=== PATIENT | female | born 1985 | race Two or more races ===

== ENCOUNTER 2016-05-11 10:14 | Emergency (ER) | payer OTHER, MEDICAID ==
[~2016-05-11] VITALS: Ht 160 cm; Wt 104.3 kg
[~2016-05-11 10:14] MED LIST: IBUPROFEN600 MG ORAL; IBUPROFEN600 MG PO; NKM; NORCO 5-325 TA1 EACH PO; ROBAXIN500 MG PO; VICODIN 5-3001 EACH ORAL
[2016-05-11] MEDS ORDERED: SOMA350 MG PO (10:25)
[2016-05-11] MEDS ORDERED: Ketorolac 60mg Inj IM ONE (10:45)
[2016-05-11] MEDS ORDERED: Oxycodone/Acetaminophen 5-325 ORAL ONE (10:45)
--- NOTE | 2016-05-11 10:45 | Emergency Room Report ---
History of Present Illness General Chief Complaint: Lower Back Pain or Injury Source: Patient Present Illness HPI The patient presents with low back pain. This started on Monday 4 days ago. She was bending over. Her back caught and she's been having spasms in the lower back. It radiates to her legs. Mainly anterior thighs. This is worse when she bends over. She also has muscle spasms. She's been taking soma with minimal help. She denies dysuria. Pain 10/10, constant and worsened with movement, aching occasional sharp with spasms. She injured her back a year ago. No x-rays have been taken. She had physical therapy one time. She denies any previous significant trauma. Numbness in her thighs. She denies any sacral area numbness, incontinence, fevers, use of blood thinners or oncologic problems. LNMP = 03/12 - irregular, states not . Allergies: Coded Allergies: No Known Allergies (Unverified , 07/22/12) Patient History Social History: Denies: smoking Social History Narrative smog technician Last Menstrual Period: mar 12 Now: No Reviewed Nursing Documentation: PMH: Agreed, PSxH: Agreed Nursing Documentation-PMH Hx Cardiac Problems: Yes - polycystic ovarian syndrome Hx Cancer: No Hx Gastrointestinal Problems: Yes Hx Neurological Problems: No Review of Systems All Other Systems: negative except mentioned in HPI Physical Exam Vital Signs Date Time Temp Pulse Resp B/P Pulse Ox O2 Delivery O2 Flow Rate FiO2 05/11/16 10:20 97.9 83 18 109/70 98 Room Air Sp02 EP Interpretation: reviewed, normal General Appearance: well appearing, no apparent distress, GCS 15 Head: normocephalic Eyes: bilateral eye PERRL, bilateral eye normal inspection ENT: moist mucus membranes Neck: full range of motion, supple Respiratory: chest non-tender, lungs clear, normal breath sounds Cardiovascular #1: regular rate, rhythm Cardiovascular #2: 2+ radial (R) Gastrointestinal: normal inspection, normal bowel sounds, non tender, no mass, non-distended Musculoskeletal: other - Bilateral lumbar muscle spasms. Slight straight leg raise is increases pain in the lower back but not bringing down her legs. Neurologic: motor strength/tone normal, DTRs symmetric, sensory intact - Subjective numbness in her thighs, cerebellar normal, normal gait - spasm Psychiatric: depressed affect Reflexes: 2+ knee (R), 2+ knee (L), 2+ ankle (R), 2+ ankle (L) Skin: no rash Medical Decision Making Diagnostic Impression: Primary Impression: Lumbar sprain Qualified Codes: S33.5XXA - Sprain of ligaments of lumbar spine, initial encounter ER Course Patient with pain in back radiating to thighs with alleged numbness. Ddx: sprain, strain, disk disease. Exam against sciatica. No prior studies done - will perform here. Also need to exclude UTI. Will treat with toradol and percocet. Spine films normal. UA negative. Improved with meds. Patient stable for outpatient observation and treatment. Laboratory Tests Test 05/11/16 10:50 Urine Color Yellow Urine Appearance Cloudy Urine pH 5 (4.5-8.0) Urine Specific [place] 1.025 (1.005-1.035) Urine Protein 1+ (NEGATIVE) H Urine Glucose (UA) Negative (NEGATIVE) Urine Ketones Negative (NEGATIVE) Urine Occult Blood 4+ (NEGATIVE) H Urine Nitrite Negative (NEGATIVE) Urine Bilirubin Negative (NEGATIVE) Urine Urobilinogen Normal MG/DL (0.0-1.0) Urine Leukocyte Esterase 1+ (NEGATIVE) H Urine RBC 2-4 /HPF (0 - 2) H Urine WBC 2-4 /HPF (0 - 2) Urine Squamous Epithelial Cells Moderate /LPF (NONE/OCC) H Urine Bacteria Few /HPF (NONE) Urine HCG, Qualitative Negative Other X-Ray Diagnostic Results Other X-Ray Diagnostic Results : X-Ray Ordered: l/s spine EP Interpretation: Yes Findings: no fractures, no dislocation, no soft tissue swelling Number of Views: 3 Last Vital Signs Date Time Temp Pulse Resp B/P Pulse Ox O2 Delivery O2 Flow Rate FiO2 05/11/16 14:32 69 14 118/72 98 Room Air 05/11/16 14:32 98.0 Status: improved Disposition: HOME, SELF-CARE Condition: Improved Scripts Tramadol Hcl* (ULTRAM*) 50 Mg Tablet 50 MG ORAL Q6H Y for For Pain, #20 TAB 0 Refills Prov: Ernst Elias M.D. 05/11/16 Ibuprofen* (MOTRIN*) 600 Mg Tablet 600 MG ORAL Q6H Y for For Pain, #20 TAB Prov: Ernst Elias M.D. 05/11/16 Ernst Elias M.D. May 11, 2016 10:45
[2016-05-11 11:19] LABS: APPEARANCE,URINE CLOUDY; KETONES,URINE NEGATIVE (NEGATIVE); LEUKOCYTE ESTERASE ,URINE 1+ (NEGATIVE); NITRITE,URINE NEGATIVE (NEGATIVE); PH,URINE 5 (4.5-8.0); PROTEIN,URINE 1+ (NEGATIVE); UROBILINOGEN,URINE NORMAL MG/DL (0.0-1.0)
[2016-05-11 11:58] LABS: BACTERIA,URINE FEW /HPF; SQUAMOUS EPITHELIAL CELL,UR MODERATE /LPF (NONE/OCC)
[2016-05-11] MEDS ORDERED: IBUPROFEN600 MG ORAL (14:11)
[2016-05-11] MEDS ORDERED: TRAMADOL HCL50 MG ORAL (14:11)
--- NOTE | 2016-05-11 14:14 | Diagnostic Imaging Report ---
Indication: Back pain Technique: 3 views of the lumbar spine Comparison: None Findings:The bony alignment is normal. Vertebral body heights are preserved. Disc spaces are preserved. The pedicles are intact. Sacral arches are preserved. Sacroiliac joint spaces are preserved Impression:No acute process
[2016-05-11 14:32] VITALS: BP 117/72
== END 2016-05-11 14:35 | disposition home or self-care (01) ==
LOC: EMR 11:25
DX: S33.5XXA Sprain of ligaments of lumbar spine, initial encounter (principal); X58.XXXA Exposure to other specified factors, initial encounter; Y93.9 Activity, unspecified; Y92.9 Unspecified place or not applicable; Y99.9 Unspecified external cause status; M54.5 Low back pain; R20.0 Anesthesia of skin; E28.2 Polycystic ovarian syndrome; Z87.19 Personal history of other diseases of the digestive system
CPT/HCPCS: 72020; 81003; 81025; 96372; 99284

== ENCOUNTER 2016-12-29 19:00 | Emergency (ER) | payer MEDICAID, OTHER ==
[~2016-12-29] VITALS: Ht 160 cm; Wt 111.1 kg
[~2016-12-29 19:00] MED LIST changes: +SOMA350 MG PO; +TRAMADOL HCL50 MG ORAL
--- NOTE | 2016-12-29 19:53 | Emergency Room Report ---
History of Present Illness General Chief Complaint: Lower Back Pain or Injury Present Illness HPI 31-year-old female presents to the emergency department complaining of 10 on a 10 in severity low back pain that radiates down the bilateral posterior thighs in an electrical shooting pattern. Patient reports numbness to the bilateral thighs. Patient states she has a history of previous episodes of similar type symptoms the last onset was on . She denies trauma or fall. Patient states acute onset after bending over and lifting a box. Patient states that since 2008 she has had intermittent numbness and tingling in the bilateral lower extremities with low back pain. She denies changes in character to her previous symptoms other than acute exacerbation. Pt. reports previous imaging showed abnormal curvature of the lumbar spine. 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 Denies night sweats, history of cancer, or recent spinal procedure. Denies numbness tingling or loss of sensation or gross motor movements of the extremities, incontinence of bowel or bladder. Denies CP, Palpitations, LOC, AMS, dizziness, Changes in Vision, gross loss of Sensation, or a sudden severe headache. (Norma Avila P.A.) Allergies: Coded Allergies: No Known Allergies (Unverified , 07/22/12) Patient History Past Medical History: see triage record Past Surgical History: none Pertinent Family History: none Last Menstrual Period: 2016 Now: No : 4 Para: 0 Reviewed Nursing Documentation: PMH: Agreed, PSxH: Agreed (Norma Avila P.A.) Nursing Documentation-PMH Hx Cardiac Problems: Yes - polycystic ovarian syndrome Hx Cancer: No Hx Gastrointestinal Problems: Yes Hx Neurological Problems: No (Norma Avila P.A.) Review of Systems All Other Systems: negative except mentioned in HPI (Norma Avila P.A.) Physical Exam Vital Signs Date Time Temp Pulse Resp B/P (MAP) Pulse Ox O2 Delivery O2 Flow Rate FiO2 12/29/16 19:20 97.3 82 22 116/67 99 Room Air Sp02 EP Interpretation: reviewed, normal General Appearance: no apparent distress, alert, GCS 15, non-toxic Head: normocephalic, atraumatic Eyes: bilateral eye normal inspection, bilateral eye PERRL ENT: hearing grossly normal, normal voice Neck: full range of motion Respiratory: lungs clear, normal breath sounds, speaking full sentences Cardiovascular #1: regular rate, rhythm, no edema Cardiovascular #2: 2+ dorsalis pedis (R), 2+ dorsalis pedis (L) Gastrointestinal: non tender, soft, no guarding, no rebound Rectal: deferred Musculoskeletal: tender - moderate lumbar TTP, bilaterally, with TTP of the bilateral gluteal muscles, pt. unable to tolerate straight leg raise, no motor weakness noted in the LE's. Neurologic: alert, oriented x3, responsive, motor strength/tone normal, sensory intact, speech normal, no Babinski, grossly normal Psychiatric: judgement/insight normal, memory normal, mood/affect normal Skin: normal color, no rash, warm/dry, well hydrated (Norma Avila) Medical Decision Making PA Attestation Dr. Louis is my supervising Physician whom patient management has been discussed with. (Norma Avila) Diagnostic Impression: Primary Impression: Acute exacerbation of chronic low back pain Additional Impression: Sciatica associated with disorder of lumbar spine ER Course 31-year-old female presents to the emergency department complaining of 10 on a 10 in severity low back pain that radiates down the bilateral posterior thighs in an electrical shooting pattern. Patient reports numbness to the bilateral thighs. Patient states she has a history of previous episodes of similar type symptoms the last onset was on . She denies trauma or fall. Patient states acute onset after bending over and lifting a box. Patient states that since 2008 she has had intermittent numbness and tingling in the bilateral lower extremities with low back pain. She denies changes in character to her previous symptoms other than acute exacerbation. Pt. reports previous imaging showed abnormal curvature of the lumbar spine. 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 Denies night sweats, history of cancer, or recent spinal procedure. Denies numbness tingling or loss of sensation or gross motor movements of the extremities, incontinence of bowel or bladder. Denies CP, Palpitations, LOC, AMS, dizziness, Changes in Vision, gross loss of Sensation, or a sudden severe headache. Ddx considered: epidural abscess, fracture, sprain/strain, meningitis, spinal chord injury, herniated disk, exacerbation of chronic low back symptoms. Vital signs reviewed and are WNL during ED visit. Pt. is afebrile with no signs of infection No new symptoms, and denies recent trauma. No saddle anesthesia noted, Pt. denies incontinence Neurovascular is intact ROM is limited due to pain -Pt. unable to tolerate the Straight leg raise. * Moderate Tenderness to palpation to paraspinal muscles of the lower back and the bilateral gluteus muscles, no spinous process tenderness, no midline tenderness. *Pt. describes pain today as severe and radiates across the lower back. ORDERS: INTERVENTIONS: - 60mg IM Toradol -Valium 2mg PO D/W Pt. that is it recommended to consult with the grant specialist for recurrent symptoms. d/w pt. to return to ED with worsening or new symptoms, or change in character from her usual exacerbation symptoms. DISCHARGE: At this time pt. is stable for d/c to home. Will provide printed patient care instructions, and any necessary prescriptions. Care plan and follow up instructions have been discussed with the patient prior to discharge. (Norma Avila P.A.) ER Course States that she has improvement of back pain with medication. Instructed to followup with her primary care doctor within 2 days. Also instructed to followup with a pain specialist or physical therapy for her chronic symptoms. Patient is instructed to come back to the emergency room if she has severe or worsening back pain inability to move her legs urinary retention. Patient verbalizes understanding and agrees Patient will be discharged on Robaxin and Motrin. Patient is instructed not to drive while taking Robaxin. (Juan Louis M.D.) Last Vital Signs Date Time Temp Pulse Resp B/P (MAP) Pulse Ox O2 Delivery O2 Flow Rate FiO2 12/29/16 19:20 97.3 82 22 116/67 99 Room Air (Norma Avila P.A.) Disposition: HOME, SELF-CARE Condition: Stable Signed Out To: Dr. Louis (Norma Avila P.A.) Scripts Ibuprofen* (MOTRIN*) 600 Mg Tablet 600 MG ORAL Q8H Y for For Pain, #30 TAB 0 Refills Prov: Juan Louis.DBetsey 12/29/16 Methocarbamol* (ROBAXIN*) 500 Mg Tablet 500 MG PO QID, #28 TAB 0 Refills Prov: Juan Louis M.D. 12/29/16 Additional Instructions: Take medications as directed. Follow up with a Primary Care Provider in 3-5 days, even if your symptoms have resolved. --Please review list of primary care clinics, if you do not already have a primary care provider Return sooner to ED if new symptoms occur, or current symptoms become worse. Do not drink alcohol, drive, or operate heavy machinery while taking [ ] as this may cause drowsiness. - Please note that this Emergency Department Report was dictated using [employer]oscopic[employer] bricklayer technology software, occasionally this can lead to erroneous entry secondary to interpretation by the dictation equipment. Norma Avila Dec 29, 2016 19:53 Juan Louis M.D. Dec 29, 2016 22:02
[2016-12-29] MEDS ORDERED: Ketorolac 60mg Inj IM ONE (20:00)
[2016-12-29] MEDS ORDERED: Methocarbamol 500mg tab ORAL ONE (21:30)
[2016-12-29] MEDS ORDERED: ROBAXIN500 MG PO (22:01)
[2016-12-29] MEDS ORDERED: IBUPROFEN600 MG ORAL (22:01)
[2016-12-29 22:11] VITALS: BP 122/88
== END 2016-12-29 22:11 | disposition home or self-care (01) ==
LOC: EMR 19:40
DX: G89.29 Other chronic pain (principal); M54.30 Sciatica, unspecified side
CPT/HCPCS: 96372; 99284

== ENCOUNTER 2018-01-30 12:11 | Emergency (ER) | payer MEDICAID ==
[~2018-01-30] VITALS: Ht 160 cm; Wt 113.4 kg
[2018-01-30] MEDS ORDERED: NEURONTIN300 MG ORAL (12:20)
[2018-01-30] MEDS ORDERED: Methocarbamol 500mg tab ORAL ONE (12:45)
[2018-01-30] MEDS ORDERED: oxyCODONE HCL/Acetaminophen 5/325mg ORAL ONE (12:45)
[2018-01-30] MEDS ORDERED: LIDOCAINE700 M1 TP (13:29)
[2018-01-30] MEDS ORDERED: ROBAXIN500 MG PO (13:29)
[2018-01-30] MEDS ORDERED: TYLENOL EXTRA500 MG ORAL (13:29)
--- NOTE | 2018-01-30 13:30 | Emergency Room Report ---
History of Present Illness General Chief Complaint: Lower Back Pain or Injury Source: Patient Present Illness HPI 32-year-old female patient presents ER complaining of acute exacerbation of chronic pain for the past day. Reports history of chronic back pain for several years. States she has had MRI imaging and seen her primary care provider regarding this pain multiple times. States that she has been taking Flexeril and gabapentin. Reports pain radiates down both legs, states is normal for her. Reports no recent injury or trauma. Reports the pain began suddenly felt like a "muscle spasm". denies bowel or bladder incontinence. Denies fever, chest pain shortness of breath. Denies abdominal pain. Denies dysuria, hematuria. states that she took [place] from her mother. Reports that she has not taken medication since early this morning. Allergies: Coded Allergies: No Known Allergies (Unverified , 07/22/12) Patient History Past Medical History: see triage record Last Menstrual Period: jun 2017 Now: No Reviewed Nursing Documentation: PMH: Agreed; PSxH: Agreed Nursing Documentation-PMH Hx Cardiac Problems: Yes - polycystic ovarian syndrome Hx Cancer: No Hx Gastrointestinal Problems: Yes Hx Neurological Problems: No Review of Systems All Other Systems: negative except mentioned in HPI Physical Exam Vital Signs Date Time Temp Pulse Resp B/P (MAP) Pulse Ox O2 Delivery O2 Flow Rate FiO2 01/30/18 12:15 97.5 96 23 87/67 94 97.5 Sp02 EP Interpretation: reviewed, normal General Appearance: well appearing, no apparent distress, alert, GCS 15, non- toxic Head: normocephalic, atraumatic Eyes: bilateral eye normal inspection, bilateral eye PERRL ENT: hearing grossly normal, normal pharynx, no angioedema, normal voice, uvula midline, moist mucus membranes Neck: full range of motion Respiratory: lungs clear, normal breath sounds, no rhonchi, no respiratory distress, no accessory muscle use, no wheezing, speaking full sentences Cardiovascular #1: regular rate, rhythm, no edema Cardiovascular #2: 2+ radial (R), 2+ radial (L), 2+ dorsalis pedis (R), 2+ dorsalis pedis (L) Genitourinary: no CVA tenderness Musculoskeletal: back normal, digits/nails normal, gait/station normal, normal range of motion, non-tender, no calf tenderness, pelvis stable, Sandrine's Sign negative Neurologic: alert, oriented x3, responsive, motor strength/tone normal, sensory intact, other - SLR positive bilaterally Psychiatric: mood/affect normal Skin: no rash Medical Decision Making PA Attestation Dr. Luna is my supervising Physician whom patient management has been discussed with. Diagnostic Impression: Primary Impression: Intractable back pain ER Course Pt presents to ED c/o back pain. DDX considered but are not limited to sprain, strain, cauda equine, epidural abscess, AAA, spinal cord compression, kidney stones. Low suspicion for cauda equina, no bowel or bladder incontinence or retention. No fever, nontoxic appearing, no radiation of pain, low suspicion for epidural mass. No abdominal pain, no blood pressure elevation, nontoxic appearing, low suspicion for AAA. no CVA tenderness, no dysuria or hematuria, low suspicion for kidney stones. low suspicion for intra-abdominal pathology, does not require CT imaging at this time. VITAL SIGNS are WNL, patient is afebrile Ordered pain medication, imaging, labs. ER COURSE: CURES reviewed. Pain medication provided. CBC and CMP unremarkable, no elevation in WBCs or LFTs UA unremarkable signs of infection, no urine protein Urine negative Discuss results with the patient patient reports Mild relief of pain but still very painful. Will provide further pain relief. patient states concern about being able to walk and take care of her children at home, does not believe she is able to stand or walk at this time x-ray of lumbar spine negative for acute disease per the preliminary reading. patient reports continued complaints of pain, due to continuing complaints of pain will admit patient for intractable pain. Consult with Dr. Luna, agrees with treatment plan. Patient to be admitted for intractable back pain. Consult with Dr. Forman, will accept patient. Patient to be transferred to [facility]. -Please note that this Emergency Department Report was dictated using [employer] Trustedinteractive media director technology software, occasionally this can lead to erroneous entry secondary to interpretation by the dictation equipment. Labs Test 01/30/18 14:40 01/30/18 14:41 01/30/18 16:10 White Blood Count 8.3 K/UL (4.8-10.8) Red Blood Count 5.03 M/UL (4.20-5.40) Hemoglobin 14.3 G/DL (12.0-16.0) Hematocrit 43.6 % (37.0-47.0) Mean Corpuscular Volume 87 FL (80-99) Mean Corpuscular Hemoglobin 28.3 PG (27.0-31.0) Mean Corpuscular Hemoglobin Concent 32.7 G/DL (32.0-36.0) Red Cell Distribution Width 12.0 % (11.6-14.8) Platelet Count 236 K/UL (150-450) Mean Platelet Volume 9.8 FL (6.5-10.1) Neutrophils (%) (Auto) 62.1 % (45.0-75.0) Lymphocytes (%) (Auto) 30.4 % (20.0-45.0) Monocytes (%) (Auto) 5.3 % (1.0-10.0) Eosinophils (%) (Auto) 1.2 % (0.0-3.0) Basophils (%) (Auto) 1.0 % (0.0-2.0) Sodium Level 137 MMOL/L (136-145) Potassium Level 4.1 MMOL/L (3.5-5.1) Chloride Level 105 MMOL/L (98-107) Carbon Dioxide Level 27 MMOL/L (21-32) Anion Gap 5 mmol/L (5-15) Blood Urea Nitrogen 12 mg/dL (7-18) Creatinine 0.7 MG/DL (0.55-1.30) Estimat Glomerular Filtration Rate > 60 mL/min (>60) Glucose Level 112 MG/DL (74-106) Calcium Level 9.2 MG/DL (8.5-10.1) Total Bilirubin 0.7 MG/DL (0.2-1.0) Aspartate Amino Transf (AST/SGOT) 41 U/L (15-37) Alanine Aminotransferase (ALT/SGPT) 65 U/L (12-78) Alkaline Phosphatase 104 U/L (46-116) Total Protein 8.2 G/DL (6.4-8.2) Albumin 3.4 G/DL (3.4-5.0) Globulin 4.8 g/dL Albumin/Globulin Ratio 0.7 (1.0-2.7) Lipase 155 U/L (73-393) Human Chorionic Gonadotropin, Quant < 1 mIU/mL (1-6) Urine Color Pale yellow Urine Appearance Slightly cloudy Urine pH 6 (4.5-8.0) Urine Specific [place] 1.015 (1.005-1.035) Urine Protein Negative (NEGATIVE) Urine Glucose (UA) Negative (NEGATIVE) Urine Ketones Negative (NEGATIVE) Urine Blood 3+ (NEGATIVE) Urine Nitrite Negative (NEGATIVE) Urine Bilirubin Negative (NEGATIVE) Urine Urobilinogen Normal MG/DL (0.0-1.0) Urine Leukocyte Esterase Negative (NEGATIVE) Urine RBC 10-15 /HPF (0 - 2) Urine WBC 0-2 /HPF (0 - 2) Urine Squamous Epithelial Cells Many /LPF (NONE/OCC) Urine Bacteria Few /HPF (NONE) Urine HCG, Qualitative Negative (NEGATIVE) Other X-Ray Diagnostic Results Other X-Ray Diagnostic Results : X-Ray ordered: lumbar spine # of Views/Limited Vs Complete: 3 View Indication: Pain EP Interpretation: Yes PA Xray: Interpretation reviewed, by supervising MD, and agrees with findings. Interpretation: no dislocation, no soft tissue swelling, no fractures Impression: No acute disease PA Scribe Text Ti Hill PA-C Last Vital Signs Date Time Temp Pulse Resp B/P (MAP) Pulse Ox O2 Delivery O2 Flow Rate FiO2 01/30/18 13:14 97.5 01/30/18 12:15 96 23 87/67 94 Status: improved Disposition: XFER SHT-TRM HOSP Condition: Serious Referrals: [facility],REFERRING (PCP) Patient Instructions: Back Exercises, [id number], Back Pain, Adult Navin Hill Jan 30, 2018 13:30
[2018-01-30] MEDS ORDERED: Morphine Sulfate 2mg/ml Inj IVP ONE (13:45)
[2018-01-30] MEDS ORDERED: Ketorolac 30mg Inj IV ONE (13:45)
[2018-01-30 14:06] VITALS: BP 96/47
[2018-01-30 14:59] LABS: EOSINOPHILS % (AUTO) 1.2 % (0.0-3.0); HEMATOCRIT 43.6 % (37.0-47.0); HEMOGLOBIN 14.3 G/DL (12.0-16.0); LYMPHOCYTES % (AUTO) 30.4 % (20.0-45.0); MEAN CORPUSCULAR VOLUME 87 FL (80-99); MONOCYTES % (AUTO) 5.3 % (1.0-10.0); NEUTROPHILS % (AUTO) 62.1 % (45.0-75.0); PLATELET COUNT 236 K/UL (150-450); RED BLOOD COUNT 5.03 M/UL (4.20-5.40); WHITE BLOOD COUNT 8.3 K/UL (4.8-10.8)
[2018-01-30 15:11] LABS: ANION GAP 5 mmol/L (5-15); BLOOD UREA NITROGEN 12 mg/dL (7-18); CALCIUM 9.2 MG/DL (8.5-10.1); CARBON DIOXIDE 27 MMOL/L (21-32); CHLORIDE 105 MMOL/L (98-107); CREATININE 0.7 MG/DL (0.55-1.30); POTASSIUM 4.1 MMOL/L (3.5-5.1); SODIUM 137 MMOL/L (136-145)
[2018-01-30 15:15] LABS: ALANINE AMINOTRANSFERASE 65 U/L (12-78); ALBUMIN 3.4 G/DL (3.4-5.0); ALBUMIN/GLOBULIN RATIO 0.7 (1.0-2.7); ALKALINE PHOSPHATASE 104 U/L (46-116); ASPARTATE AMINO TRANSFERASE 41 U/L (15-37); BILIRUBIN,TOTAL 0.7 MG/DL (0.2-1.0)
[2018-01-30 16:40] LABS: APPEARANCE,URINE SLIGHTLY CLOUDY; BILIRUBIN, URINE NEGATIVE (NEGATIVE); COLOR,URINE PALE YELLOW; GLUCOSE, URINE (UA) NEGATIVE (NEGATIVE); KETONES,URINE NEGATIVE (NEGATIVE); LEUKOCYTE ESTERASE ,URINE NEGATIVE (NEGATIVE); NITRITE,URINE NEGATIVE (NEGATIVE); PH,URINE 6 (4.5-8.0); PROTEIN,URINE NEGATIVE (NEGATIVE); UROBILINOGEN,URINE NORMAL MG/DL (0.0-1.0)
--- NOTE | 2018-01-30 17:03 | Diagnostic Imaging Report ---
Indication: Lower back pain Technique: 3 views of the lumbar spine Comparison: None Findings: But alignment is normal. Vertebral body heights are preserved. The disc spaces are preserved. Pedicles are intact. Sacral arches are preserved. Sacroiliac joint spaces are preserved Impression: Negative
[2018-01-30 17:13] VITALS: BP 101/64
[2018-01-30 18:25] VITALS: BP 101/64
== END 2018-01-30 18:25 | disposition other institution (70) ==
LOC: EMR 12:25
DX: M54.5 Low back pain (principal); G89.29 Other chronic pain
CPT/HCPCS: 36415; 72020; 80053; 81003; 81025; 83690; 84702; 85025; 96374; 96375; 99284; J1885; J2270